=== PATIENT | male | born 1995 | race Caucasian/White ===

== ENCOUNTER 2022-02-06 10:38 | Emergency (ER) | payer MEDICAID, OTHER ==
[~2022-02-06] VITALS: Ht 167.6 cm; Wt 64.1 kg
[2022-02-06 12:07] VITALS: BP 125/74
== END 2022-02-06 13:08 | disposition home or self-care (01) ==
LOC: ER 10:38
DX: T16.1XXA Foreign body in right ear, initial encounter (principal); X58.XXXA Exposure to other specified factors, initial encounter; Y93.89 Activity, other specified; Y92.89 Other specified places as the place of occurrence of the external cause; Y99.8 Other external cause status
CPT/HCPCS: 69209

== ENCOUNTER 2024-10-28 14:23 | Emergency (ER) | payer SELFPAY | END 2024-10-28 15:20 | disposition left against medical advice (07) | LOC: ER 14:25 | DX: Z00.8 Encounter for other general examination (principal); Z53.21 Procedure and treatment not carried out due to patient leaving prior to being seen by health care provider ==